=== PATIENT | male | born 1980 | race Caucasian/White ===

== ENCOUNTER 2019-04-20 10:00 | Emergency (ER) | payer MEDICAID ==
[~2019-04-20] VITALS: Ht 167.6 cm; Wt 83.0 kg
[2019-04-20 10:08] VITALS: Ht 167.6 cm; Wt 83.0 kg
[2019-04-20] MEDS ORDERED: XANAX1 MG PO (10:10)
[2019-04-20] MEDS ORDERED: LISINOPRIL20 MG PO (10:10)
[2019-04-20] MEDS ORDERED: PROBIOTIC1 EAC1 PO (10:10)
[2019-04-20] MEDS ORDERED: VALIUM5 MG PO (10:11)
[2019-04-20 10:41] LABS: BASOPHILS 0.6 % (0-2); EOSINOPHILS 4.8 % (0-7); HEMATOCRIT 46.2 % (42.0-54.0); HEMOGLOBIN 16.8 g/dL (13.5-17.5); IMMATURE GRANULOCYTES 0.4 % (0-5); LYMPHOCYTES 27.1 % (15-50); MCH 36.1 pg (26.0-34.0); MCHC 36.4 g/dL (31.0-37.0); MCV 99.4 fL (80.0-100.0); MEAN PLATELET VOLUME 10.5 fL (7.4-10.4); MONOCYTES 8.5 % (2-11); NEUTROPHILS 58.6 % (40-80); PLATELET COUNT 222 10x3/uL (130-400); RBC 4.65 10x6/uL (4.20-6.10); RDW 13.1 % (11.5-14.5); WBC 8.3 10x3/uL (4.8-10.8)
[2019-04-20 10:44] LABS: ALBUMIN 4.2 g/dL (3.4-5.0); ALKALINE PHOSPHATASE 110 U/L (46-116); ALT (SGPT) 57 U/L (10-68); BILIRUBIN - TOTAL 0.48 mg/dL (0.2-1.3); CALC OSMOLALITY 267 mosm/kg (275-300); CARBON DIOXIDE 28.9 mmol/L (21.0-32.0); CHLORIDE - SERUM 98 mmol/L (98-107); CREATININE - SERUM 0.8 mg/dL (0.6-1.3); GLUCOSE 94 mg/dL (74-106); POTASSIUM - SERUM 4.5 mmol/L (3.5-5.1); PROTEIN - SERUM 7.7 g/dL (6.4-8.2); SODIUM 135 mmol/L (136-145); UREA NITROGEN 8 mg/dL (7-18); eGFR NON AFRICAN AMERICAN > 90 mL/min (90-120)
[2019-04-20 10:48] LABS: AMYLASE - SERUM 40 U/L (25-115); LIPASE 89 U/L (73-393)
[2019-04-20 10:50] LABS: TROPONIN-I < 0.017 ng/mL (0.000-0.060)
[2019-04-20 11:14] LABS: APPEARANCE CLEAR (CLEAR); BILIRUBIN NEGATIVE (NEGATIVE); COLOR STRAW (YELLOW); GLUCOSE NEGATIVE (NEGATIVE); KETONE NEGATIVE (NEGATIVE); NITRITE NEGATIVE (NEGATIVE); PROTEIN NEGATIVE (NEGATIVE); SPECIFIC GRAVITY 1.015 (1.005-1.020); UROBILINOGEN NORMAL (NORMAL)
[2019-04-20] MEDS ORDERED: OMEPRAZOLE40 MG PO (13:38)
[2019-04-20 13:50] VITALS: BP 133/88
== END 2019-04-20 13:45 | disposition home or self-care (01) ==
LOC: D.ER 10:00
PROVIDERS: Family Medicine
DX: K29.70 Gastritis, unspecified, without bleeding (principal)

== ENCOUNTER 2019-07-07 10:51 | Emergency (ER) | payer MEDICAID ==
[~2019-07-07] VITALS: Ht 167.6 cm; Wt 75.0 kg
[~2019-07-07 10:51] MED LIST: LISINOPRIL20 MG PO; OMEPRAZOLE40 MG PO; PROBIOTIC1 EAC1 PO; VALIUM5 MG PO; XANAX1 MG PO
[2019-07-07 11:03] VITALS: Ht 167.6 cm; Wt 75.0 kg
[2019-07-07 11:31] LABS: BASOPHILS 0.3 % (0-2); EOSINOPHILS 2.1 % (0-7); HEMATOCRIT 50.6 % (42.0-54.0); HEMOGLOBIN 17.3 g/dL (13.5-17.5); IMMATURE GRANULOCYTES 0.3 % (0-5); LYMPHOCYTES 22.7 % (15-50); MCH 35.3 pg (26.0-34.0); MCHC 34.2 g/dL (31.0-37.0); MCV 103.3 fL (80.0-100.0); MEAN PLATELET VOLUME 10.2 fL (7.4-10.4); MONOCYTES 7.3 % (2-11); NEUTROPHILS 67.3 % (40-80); PLATELET COUNT 224 10x3/uL (130-400); RDW 12.7 % (11.5-14.5); WBC 9.9 10x3/uL (4.8-10.8)
[2019-07-07 11:44] LABS: CALC OSMOLALITY 276 mosm/kg (275-300); CALCIUM 9.4 mg/dL (8.5-10.1); CARBON DIOXIDE 27.3 mmol/L (21.0-32.0); CHLORIDE - SERUM 102 mmol/L (98-107); GLUCOSE 104 mg/dL (74-106); POTASSIUM - SERUM 4.5 mmol/L (3.5-5.1); SODIUM 140 mmol/L (136-145); UREA NITROGEN 8 mg/dL (7-18); eGFR NON AFRICAN AMERICAN 89 mL/min (90-120)
[2019-07-07 11:50] LABS: ALKALINE PHOSPHATASE 117 U/L (46-116); ALT (SGPT) 54 U/L (10-68); BILIRUBIN - TOTAL 0.54 mg/dL (0.2-1.3); PROTEIN - SERUM 7.6 g/dL (6.4-8.2)
[2019-07-07] MEDS ORDERED: MEDROL DOSE PACK4 MG PO (12:47)
[2019-07-07] MEDS ORDERED: ZPAK PO (12:47)
[2019-07-07 12:58] VITALS: BP 149/104
== END 2019-07-07 13:04 | disposition home or self-care (01) ==
LOC: D.ER 10:51
PROVIDERS: Family Medicine
DX: J40 Bronchitis, not specified as acute or chronic (principal); Z72.0 Tobacco use; R06.2 Wheezing; I10 Essential (primary) hypertension

== ENCOUNTER 2019-07-12 04:45 | Emergency (ER) | payer MEDICAID ==
[~2019-07-12] VITALS: Ht 167.6 cm; Wt 77.3 kg
[~2019-07-12 04:45] MED LIST changes: +MEDROL DOSE PACK4 MG PO; +ZPAK PO
[2019-07-12 04:53] VITALS: Ht 167.6 cm; Wt 77.3 kg
[2019-07-12 05:43] LABS: BASOPHILS 0.1 % (0-2); EOSINOPHILS 0.1 % (0-7); HEMATOCRIT 45.6 % (42.0-54.0); HEMOGLOBIN 15.6 g/dL (13.5-17.5); IMMATURE GRANULOCYTES 1.7 % (0-5); LYMPHOCYTES 17.1 % (15-50); MCH 35.4 pg (26.0-34.0); MCHC 34.2 g/dL (31.0-37.0); MCV 103.4 fL (80.0-100.0); MEAN PLATELET VOLUME 10.2 fL (7.4-10.4); MONOCYTES 5.7 % (2-11); NEUTROPHILS 75.3 % (40-80); PLATELET COUNT 244 10x3/uL (130-400); RBC 4.41 10x6/uL (4.20-6.10); RDW 12.7 % (11.5-14.5); WBC 12.1 10x3/uL (4.8-10.8)
[2019-07-12 05:53] LABS: ALBUMIN 3.6 g/dL (3.4-5.0); ALKALINE PHOSPHATASE 92 U/L (46-116); ALT (SGPT) 42 U/L (10-68); BILIRUBIN - TOTAL 0.48 mg/dL (0.2-1.3); C-REACTIVE PROTEIN 0.2 mg/dL (0.0-0.9); CALC OSMOLALITY 271 mosm/kg (275-300); CALCIUM 8.8 mg/dL (8.5-10.1); CARBON DIOXIDE 26.5 mmol/L (21.0-32.0); CHLORIDE - SERUM 101 mmol/L (98-107); CREATINE KINASE 85 UL (21-232); CREATININE - SERUM 0.8 mg/dL (0.6-1.3); GLUCOSE 130 mg/dL (74-106); POTASSIUM - SERUM 4.6 mmol/L (3.5-5.1); PROTEIN - SERUM 6.9 g/dL (6.4-8.2); SODIUM 135 mmol/L (136-145); UREA NITROGEN 12 mg/dL (7-18); eGFR NON AFRICAN AMERICAN > 90 mL/min (90-120)
[2019-07-12 06:03] LABS: APPEARANCE CLOUDY (CLEAR); BILIRUBIN NEGATIVE (NEGATIVE); COLOR YELLOW (YELLOW); GLUCOSE 100 mg/dL (NEGATIVE); KETONE NEGATIVE (NEGATIVE); NITRITE NEGATIVE (NEGATIVE); PROTEIN NEGATIVE (NEGATIVE); SPECIFIC GRAVITY 1.015 (1.005-1.020); UROBILINOGEN NORMAL (NORMAL)
[2019-07-12 06:04] LABS: AMORPHOUS SEDIMENT >1+ /lpf (NONE SEEN); BACTERIA FEW /hpf (NEGATIVE); EPITHELIAL CELLS 0-5 /hpf (0-5); RED CELLS - URINE 0-5 /hpf (0-5); UDS - AMPHET NEGATIVE QUAL (NEGATIVE); UDS - BARB NEGATIVE QUAL (NEGATIVE); UDS - BENZO NEGATIVE QUAL (NEGATIVE); UDS - COCAINE NEGATIVE QUAL (NEGATIVE); UDS - OPIATE POSITIVE QUAL (NEGATIVE); UDS - PCP NEGATIVE QUAL (NEGATIVE); UDS - THC NEGATIVE QUAL (NEGATIVE); WHITE CELLS - URINE 0-5 /hpf (NEGATIVE)
[2019-07-12] MEDS ORDERED: PROMETHAZINE W473 ML PO (07:26)
[2019-07-12] MEDS ORDERED: CLEOCIN HCL300 MG PO (07:26)
[2019-07-12 07:53] VITALS: BP 125/74
[2019-07-12 09:30] LABS: ERYTHROCYTE SEDIMENTATION RATE 1 mm/hr (0-15)
== END 2019-07-12 07:53 | disposition home or self-care (01) ==
LOC: D.ER 04:45
PROVIDERS: Family Medicine
DX: L03.90 Cellulitis, unspecified (principal); M79.605 Pain in left leg; M79.604 Pain in right leg

== ENCOUNTER → 2019-08-11 | Emergency (ER) | payer MEDICAID ==
[~2019-08-11] VITALS: Ht 167.6 cm; Wt 79.5 kg
[~2019-08-11] MED LIST changes: +BENTYL10 MG PO; +CLEOCIN HCL300 MG PO; +PROMETHAZINE W473 ML PO; +ZOFRAN4 MG PO
[2019-08-11 12:09] VITALS: Ht 167.6 cm; Wt 79.5 kg
[2019-08-11 12:35] LABS: BASOPHILS 0.1 % (0-2); EOSINOPHILS 0.5 % (0-7); HEMATOCRIT 46.8 % (42.0-54.0); HEMOGLOBIN 16.2 g/dL (13.5-17.5); IMMATURE GRANULOCYTES 0.4 % (0-5); LYMPHOCYTES 28.9 % (15-50); MCH 35.2 pg (26.0-34.0); MCHC 34.6 g/dL (31.0-37.0); MCV 101.7 fL (80.0-100.0); MEAN PLATELET VOLUME 9.5 fL (7.4-10.4); MONOCYTES 6.9 % (2-11); NEUTROPHILS 63.2 % (40-80); PLATELET COUNT 289 10x3/uL (130-400); RDW 12.3 % (11.5-14.5)
[2019-08-11 12:39] LABS: CALC OSMOLALITY 275 mosm/kg (275-300); CALCIUM 9.5 mg/dL (8.5-10.1); CARBON DIOXIDE 27.2 mmol/L (21.0-32.0); CHLORIDE - SERUM 100 mmol/L (98-107); CREATININE - SERUM 0.9 mg/dL (0.6-1.3); GLUCOSE 94 mg/dL (74-106); POTASSIUM - SERUM 4.1 mmol/L (3.5-5.1); SODIUM 138 mmol/L (136-145); UREA NITROGEN 12 mg/dL (7-18); eGFR NON AFRICAN AMERICAN > 90 mL/min (90-120)
[2019-08-11 12:48] LABS: ALKALINE PHOSPHATASE 109 U/L (46-116); ALT (SGPT) 35 U/L (10-68); AMYLASE - SERUM 33 U/L (25-115); BILIRUBIN - TOTAL 0.84 mg/dL (0.2-1.3); LIPASE 66 U/L (73-393); TROPONIN-I < 0.017 ng/mL (0.000-0.060)
[2019-08-11 13:05] LABS: APPEARANCE CLEAR (CLEAR); BILIRUBIN NEGATIVE (NEGATIVE); COLOR YELLOW (YELLOW); GLUCOSE NEGATIVE (NEGATIVE); KETONE LARGE mg/dL (NEGATIVE); NITRITE NEGATIVE (NEGATIVE); PROTEIN NEGATIVE (NEGATIVE)
[2019-08-11 15:37] VITALS: BP 127/91
== END | disposition home or self-care (01) ==
LOC: D.ER 11:52
PROVIDERS: Family Medicine
DX: R10.11 Right upper quadrant pain (principal); R11.0 Nausea; I10 Essential (primary) hypertension; Z72.0 Tobacco use

== ENCOUNTER 2020-04-04 15:05 | Emergency (ER) | payer MEDICAID ==
[~2020-04-04] VITALS: Ht 167.6 cm; Wt 86.4 kg
[2020-04-04 15:13] VITALS: Ht 167.6 cm; Wt 86.4 kg
[2020-04-04 15:42] LABS: BASOPHILS 0.4 % (0-2); EOSINOPHILS 3.1 % (0-7); HEMATOCRIT 49.4 % (42.0-54.0); HEMOGLOBIN 16.7 g/dL (13.5-17.5); IMMATURE GRANULOCYTES 0.4 % (0-5); LYMPHOCYTES 25.5 % (15-50); MCH 35.1 pg (26.0-34.0); MCHC 33.8 g/dL (31.0-37.0); MCV 103.8 fL (80.0-100.0); MEAN PLATELET VOLUME 10.1 fL (7.4-10.4); MONOCYTES 6.4 % (2-11); NEUTROPHILS 64.2 % (40-80); PLATELET COUNT 235 10x3/uL (130-400); RBC 4.76 10x6/uL (4.20-6.10); RDW 12.2 % (11.5-14.5); WBC 8.3 10x3/uL (4.8-10.8)
[2020-04-04 15:53] LABS: CALC OSMOLALITY 278 mosm/kg (275-300); CALCIUM 9.2 mg/dL (8.5-10.1); CHLORIDE - SERUM 101 mmol/L (98-107); CREATININE - SERUM 0.9 mg/dL (0.6-1.3); GLUCOSE 94 mg/dL (74-106); POTASSIUM - SERUM 4.3 mmol/L (3.5-5.1); SODIUM 139 mmol/L (136-145); UREA NITROGEN 14 mg/dL (7-18); eGFR NON AFRICAN AMERICAN > 90 mL/min (90-120)
[2020-04-04 16:01] LABS: ALBUMIN 4.2 g/dL (3.4-5.0); ALKALINE PHOSPHATASE 113 U/L (30-120); ALT (SGPT) 44 U/L (10-68); BILIRUBIN - TOTAL 0.45 mg/dL (0.2-1.3); PROTEIN - SERUM 7.6 g/dL (6.4-8.2)
[2020-04-04] MEDS ORDERED: LIBRIUM25 MG PO (18:50)
[2020-04-04 19:35] VITALS: BP 126/79
== END 2020-04-04 19:35 | disposition home or self-care (01) ==
LOC: D.ER 15:05
PROVIDERS: Emergency Medicine
DX: R42 Dizziness and giddiness (principal); R11.2 Nausea with vomiting, unspecified; I10 Essential (primary) hypertension; Z72.0 Tobacco use

== ENCOUNTER 2020-05-14 10:23 | Emergency (ER) | payer MEDICAID ==
[~2020-05-14] VITALS: Ht 167.6 cm; Wt 82.3 kg
[~2020-05-14 10:23] MED LIST changes: +LIBRIUM25 MG PO
[2020-05-14 10:27] VITALS: Ht 167.6 cm; Wt 82.3 kg
[2020-05-14 11:31] LABS: APTT 30.8 SECONDS (22.8-39.4); INR 0.89 (0.85-1.17)
[2020-05-14 11:35] LABS: CALC OSMOLALITY 280 mosm/kg (275-300); CALCIUM 8.8 mg/dL (8.5-10.1); CARBON DIOXIDE 28.1 mmol/L (21.0-32.0); CHLORIDE - SERUM 107 mmol/L (98-107); CREATININE - SERUM 0.9 mg/dL (0.6-1.3); GLUCOSE 99 mg/dL (74-106); POTASSIUM - SERUM 4.5 mmol/L (3.5-5.1); SODIUM 141 mmol/L (136-145); UREA NITROGEN 13 mg/dL (7-18); eGFR NON AFRICAN AMERICAN > 90 mL/min (90-120)
[2020-05-14 11:41] LABS: BASOPHILS 0.5 % (0-2); EOSINOPHILS 4.3 % (0-7); HEMATOCRIT 45.2 % (42.0-54.0); HEMOGLOBIN 15.3 g/dL (13.5-17.5); IMMATURE GRANULOCYTES 0.2 % (0-5); LYMPHOCYTES 22.5 % (15-50); MCH 34.3 pg (26.0-34.0); MCHC 33.8 g/dL (31.0-37.0); MCV 101.3 fL (80.0-100.0); MEAN PLATELET VOLUME 10.1 fL (7.4-10.4); MONOCYTES 5.6 % (2-11); NEUTROPHILS 66.9 % (40-80); PLATELET COUNT 202 10x3/uL (130-400); RBC 4.46 10x6/uL (4.20-6.10); RDW 12.5 % (11.5-14.5); WBC 8.6 10x3/uL (4.8-10.8)
[2020-05-14 11:52] LABS: ALBUMIN 3.7 g/dL (3.4-5.0); ALKALINE PHOSPHATASE 93 U/L (30-120); ALT (SGPT) 37 U/L (10-68); BILIRUBIN - TOTAL 0.31 mg/dL (0.2-1.3); CKMB 1.3 U/L (0.0-3.6); CREATINE KINASE 117 UL (21-232); PROTEIN - SERUM 6.8 g/dL (6.4-8.2); TROPONIN-I < 0.017 ng/mL (0.000-0.060)
[2020-05-14] MEDS ORDERED: CARAFATE1 G PO (13:10)
[2020-05-14] MEDS ORDERED: PHENERGAN25 M1 PO (13:10)
[2020-05-14] MEDS ORDERED: HYDROCODON-ACE1 EAC7 PO (13:10)
[2020-05-14 13:41] VITALS: BP 143/88
== END 2020-05-14 13:41 | disposition home or self-care (01) ==
LOC: D.ER 10:23
PROVIDERS: Emergency Medicine
DX: R07.9 Chest pain, unspecified (principal); R10.13 Epigastric pain; I10 Essential (primary) hypertension; Z72.0 Tobacco use